=== PATIENT | male | born 1950 | race Caucasian/White ===

== ENCOUNTER 2021-03-11 11:59 | Outpatient (CLI) | payer MEDICARE ==
[2021-03-11 20:33] LABS: SARS-CoV-2 PCR by NAA DETECTED (NotDetected)
== END 2021-03-11 12:00 | disposition home or self-care (01) ==
LOC: CSHSDC/OP 11:59
PROVIDERS: ATTEND Internal Medicine
DX: U07.1 COVID-19 (principal)
CPT/HCPCS: U0003; U0005; 87635

== ENCOUNTER 2021-08-22 11:45 | Outpatient (CLI) | payer MEDICARE | END 2021-08-22 11:46 | disposition home or self-care (01) | LOC: CSHCP 11:45 | PROVIDERS: ATTEND Internal Medicine Critical Care Medicine | DX: J44.9 Chronic obstructive pulmonary disease, unspecified (principal) | CPT/HCPCS: 94060; 94726; 94729; 94760 ==

== ENCOUNTER 2024-09-28 13:41 | Outpatient (CLI) | payer MEDICARE | END 2024-09-28 13:42 | disposition home or self-care (01) | LOC: CSHCP 13:41 | PROVIDERS: ATTEND Internal Medicine Critical Care Medicine | DX: J44.9 Chronic obstructive pulmonary disease, unspecified (principal) | CPT/HCPCS: 94060; 94726; 94729; 94760 ==